=== PATIENT | male | born 1955 | race Caucasian/White ===

== ENCOUNTER → 2017-07-02 | Outpatient (CLI) | payer OTHER ==
[2017-07-02 14:43] LABS: HEMOGLOBIN 17.7 g/dL (14.1-18.0); LYMPH # 2.5 K/mm3 (0.7-4.5); LYMPH % 29.3 % (10-50)
[2017-07-02 15:22] LABS: BUN 16 mg/dL (7-18)
[2017-07-02 15:28] LABS: GFR (ESTIMATED) 68 ML/MIN (>60); PROSTATE-SPECIFIC AG SCREEEN 4.5 ng/mL (0.0-4.0)
== END ==
LOC: LAB 11:23
PROVIDERS: Family Medicine
DX: I10 Essential (primary) hypertension (principal); E78.5 Hyperlipidemia, unspecified; Z12.5 Encounter for screening for malignant neoplasm of prostate; Z13.29 Encounter for screening for other suspected endocrine disorder
CPT/HCPCS: G0103